=== PATIENT | female | born 1935 | race Caucasian/White ===

== ENCOUNTER → 2018-08-14 | Outpatient (CLI) | payer OTHER ==
[~2018-08-14] VITALS: Ht 160 cm; Wt 68.0 kg
[~2018-08-14] MED LIST: ACETAMINOPHEN-1 EAC1 PO; ADVAIR 100-501 EACH; ALLEGRA180 MG PO; AMLODIPINE BESY10 MG PO; ASPIRIN EC81 M1 PO; ATORVASTATIN CA40 MG PO; BRILINTA90 MG PO; CENTRUM SILVER1 EAC4 PO; DIOVAN HCT 1601 EACH PO; FIBER LAXATIV0.52 GM; FLUTICASONE-SA1 EAC3 INH; GLUMETZA1000 PO; HYDROCODONE-AP1 EA10 PO; IMDUR 30 MG TAB30 M1 PO; LISINOPRIL-HCT1 EACH PO; LISINOPRIL10 MG PO; LOPRESSOR25 PO; LOVAZA1000 MG PO; MOBIC7.5 MG PO; NITROGLYCERIN0.4 MG SUBLING; PERCOCET 5-3251 EACH PO; PRAVACHOL40 MG PO; PRESERVISION L1 EACH PO; SIMVASTATIN40 MG PO; SINGULAIR 10 MG10 M1 PO; TRAMADOL 50 MG50 MG PO; VENTOLIN HFA 1818 GM INH; XARELTO20 MG PO
[2018-08-14 11:18] VITALS: BP 115/53
--- NOTE | 2018-08-14 11:41 | NUR ---
Pain Clinic Assessment: 1. History of Osteoarthritis: Not Applicable History of Rheumatoid Arthritis: Not Applicable 2. Height: 5 ft. 3 in. 160.0 cm. Weight: 150.0 lb. oz. 68.040 kg. Patient's BMI: 26.6 3. Vital Signs: BP: 115/53 Pulse: 58 Resp: 14 Temp: 02 Sat: 96 ECG Mon: 4. Pain Intensity: 7 5. Fall Risk: Dizziness: N Needs help standing or walking: N Fallen in the last 3 months: N Fall risk comments: 6. Patient on Blood Thinner: None 7. History of Hypertension: Y 8. Opioid Therapy greater than 6 weeks: N Opiate Contract Signed: 9. Risk Assessment Tool Provided: 10. Functional Assessment Tool: 11. Recreational Drug Use: Never Drug Type: Tobacco Use: Never Smoker Tobacco Type: Amount or Packs/day: How Many Years: Alcohol Use: No Frequency: Quant:
--- NOTE | 2018-08-26 17:25 | HPC ---
[facility] [address] [place] [address] PAIN MANAGEMENT CONSULTATION Name: VIANEYELLA JACINTA Room #: REG [facility] Cecelia.#: [id number] Admission: 08/14/18 ������������������ Attend Phys: Celso Chakraborty MD Discharge: ������������������ Date of : 34 Report #: [id number] THIS REPORT FOR: //name// CC: Mavis Chakraborty DATE OF SERVICE: 08/14/2018 CHIEF COMPLAINT: Low back pain. HISTORY OF PRESENT ILLNESS: The patient is a carlos enrique 83-year-old who is here today essentially at the request of her stepson. Her stepson, Hung, has been a longstanding patient of our clinic and has responded nicely to treatments including epidural injections over the course of about 10 years. He referred her to us for treatment. The patient has been seeing Dr. Mavis Shields, but apparently she has changed practice location and she is seeing a new physician and she cannot give me his name at this time. She describes pain of 7-9/10, aching, shooting, continuous, intensely this worsened by standing and walking. She gets some relief with sitting. Consequently, she sits a lot. She is fairly socially isolated, although she says she gets out 2-3 times a week. She drives her own car and does her own laundry, a bit of cooking, but since pain with standing, she does less of these activities than she would like. MEDICATIONS: Metformin, aspirin, lisinopril, metoprolol, pravastatin, amlodipine, isosorbide, fluticasone, nitroglycerin, vitamin C. ALLERGIES: None. PAST MEDICAL HISTORY: Positive for type 2 diabetes, history of anemia, asthma and hypertension. She had chest pain and was seen at [facility] and received angioplasty 3 years ago. She is not receiving any anticoagulation therapy at this time and apparently has stents per her history. She suffered a colonic or gastrointestinal bleed. She was on Eliquis for a period of time and taken off. She reports that she has a device in called a black watch, but could give me a few details about this device and its role. SOCIAL HISTORY: She is retired, lives in [place]. She has been living independently without help in house work or other tasks. She denies use of tobacco and alcohol. Her opioid risk tool was completed and scored at zero. REVIEW OF SYSTEMS: Positive for night sweats and fatigue, decreased appetite. She has a history of heart trouble, described palpitations and some shortness of [address] [address] PAIN MANAGEMENT CONSULTATION Name: ELLA WINTERS Room #: REG [facility].#: [id number] Admission: 08/14/18 ������������������ Attend Phys: Celso Chakraborty MD Discharge: ������������������ Date of : 34 Report #: [id number] breath when lying flat. She complains of asthma, wheezing, and nocturia. She has had some episodes of insomnia over the course of the last year or two. PHYSICAL EXAMINATION: GENERAL: Very pleasant 83-year-old. She does not appear to have any cognitive dysfunction, although she seems sad during her discussion. She is 5 feet 3 inches, 150 pounds, BMI is 26.6. VITAL SIGNS: Her blood pressure 115/53, heart rate 58, respirations 14. HEENT: Within normal limits and her pupils are noted to be equal, round, reactive to light. EOMs are intact. Mucous membranes are moist. NECK: Clear. Good range of motion. CHEST: Clear to auscultation without wheezing. CARDIAC: Rhythm is regular and I could not appreciate a murmur. ABDOMEN: Negative without organomegaly. MUSCULOSKELETAL: Examination of the spine reveals some scoliotic change. Tenderness across the lumbosacral segment. Sacroiliac joints are nontender. Straight leg raising reproduces some pain in the low back and radiation into the hips, but nothing further. Sensation and strength in lower extremities are judged to be adequate. Deep tendon reflexes are absent in knees and ankles. IMPRESSION: Lumbar spondylosis with scoliosis. Pain is fairly diffuse across the lumbosacral segment. I would be willing to give her a single epidural injection with intent to provide some relief of her axial back pain with her scoliotic change. She may have discogenic pain as well. Preauthorization is required by insurance, so we will seek preauthorization before we proceed. Otherwise, options include treatment with medication, which have significant side effects in an elderly patient. We would like to try injection therapy first. I would consider spondylitic treatments with facet injections, but would prefer to perform the epidural first due to its simplicity in its ability to provide coverage over multiple levels. All of this explained to the patient. She was given an opportunity to ask and answer questions. Followup visit planned for injection as soon as able. ��������������������������������������������� <ELECTRONICALLY SIGNED> ���������������������������������������� By: Celso Chakraborty MD ��������������������������������������������� 08/26/18 1725 [id number] Celso Chakraborty MD /nt
== END ==
LOC: PAIN 06:56
DX: M47.816 Spondylosis without myelopathy or radiculopathy, lumbar region (principal); M41.86 Other forms of scoliosis, lumbar region; Z79.899 Other long term (current) drug therapy

== ENCOUNTER → 2018-09-25 | Outpatient (CLI) | payer OTHER ==
[~2018-09-25] VITALS: Ht 160 cm; Wt 68.2 kg
--- NOTE | ~2018-09-25 | HPC ---
[facility] [address] [place] [address] PAIN MANAGEMENT CONSULTATION Name: VIANEYELLAYOKASTA WORKMAN Room #: REG [facility] Cecelia.#: [id number] Admission: 09/25/18 ������������������ Attend Phys: Celso Chakraborty MD Discharge: ������������������ Date of : 34 Report #: [id number] THIS REPORT FOR: //name// CC: Mavis Chakraborty Followup visit for scoliosis, chronic low back pain with spondylosis and radiculopathy. The patient returns today for an epidural injection. We have received preauthorization from the insurance company after a delay and I needed addendum in my chart since I did not specifically mention her radiculopathy in my impression. She has multicausal back pain with radiation. Pain radiates from her back into her left side at the apex of her scoliosis as well as some radiation down into her hips. The radiating pains are certainly radicular in part and she has spondylitic pain as well. For reasons outlined in my note, we have received preauthorization to go forward with a trial of epidural steroid therapy and we will evaluate her response. There have been no significant changes since her visit here on 08/14/2018. She describes her pain once again in severe intensity levels on a daily basis, can reach 9, depending on activity. PHYSICAL EXAMINATION: VITAL SIGNS: Her blood pressure 131/58, heart rate is 57, respirations 16. GENERAL: She is pleasant, alert and oriented without any signs of cognitive issues. MUSCULOSKELETAL: Reveals once again scoliosis to the right with rotation. There is significant tenderness along the lumbosacral segment. Reduced range of motion. She has pain that radiates from the apex of her scoliosis, left in a radicular pattern with considered upper lumbar as well as some radiating pain into her hips. Most of her radicular pain is high lumbar, but there is also some lumbar pain radiating into the legs as well. Pinprick sensation is normal. Strength in lower extremities is also within normal limits. Deep tendon reflexes are absent bilaterally at knees and ankles. IMPRESSION: Lumbar spondylosis with scoliosis and radiculopathy with multiple dermatomal distribution including upper lumbar distribution and hips. PROCEDURE: Lumbar epidural steroid injection under fluoroscopic guidance. DESCRIPTION OF PROCEDURE: She was taken to fluoroscopic suite where she was placed prone, skin prepped with ChloraPrep. Skin was anesthetized over L2-L3. A 20-gauge Tuohy epidural needle advanced into the epidural space to left of midline. There was no blood or CSF aspirated. A 0.25 [place] [address] PAIN MANAGEMENT CONSULTATION Name: ELLA WINTERS Room #: REG [facility] Cecelia.#: [id number] Admission: 09/25/18 ������������������ Attend Phys: Celso Chakraborty MD Discharge: ������������������ Date of : 34 Report #: [id number] injected and excellent epidurogram was achieved. It was then followed by 3 mL of 0.5% lidocaine mixed with 60 mg of triamcinolone. I slightly reduced her triamcinolone related to her diabetes. She tolerated the procedure well and there were no complications. She was taken to recovery room for observation. Followup visit is planned in 6-8 weeks to evaluate the longer term response to this injection. It will help us to guide therapy. ��������������������������������������������� ���������������������������������������� By: ��������������������������������������������� [id number] Celso Chakraborty MD /nt
[2018-09-25 08:51] VITALS: BP 131/58
--- NOTE | 2018-09-25 08:59 | NUR ---
Pain Clinic Assessment: 1. History of Osteoarthritis: Not Applicable History of Rheumatoid Arthritis: Not Applicable 2. Height: 5 ft. 3 in. 160.0 cm. Weight: 150.4 lb. oz. 68.221 kg. Patient's BMI: 26.6 3. Vital Signs: BP: 131/58 Pulse: 57 Resp: 16 Temp: 02 Sat: 97 ECG Mon: 4. Pain Intensity: 9 5. Fall Risk: Dizziness: Y Needs help standing or walking: N Fallen in the last 3 months: N Fall risk comments: 6. Patient on Blood Thinner: None 7. History of Hypertension: Y 8. Opioid Therapy greater than 6 weeks: N Opiate Contract Signed: 9. Risk Assessment Tool Provided: LOW RISK 0/3 10. Functional Assessment Tool: 11. Recreational Drug Use: Never Drug Type: Tobacco Use: Never Smoker Tobacco Type: Amount or Packs/day: How Many Years: Alcohol Use: No Frequency: Quant:
== END | disposition home or self-care (01) ==
LOC: PAIN 06:40
DX: M47.26 Other spondylosis with radiculopathy, lumbar region (principal); G89.29 Other chronic pain; M41.86 Other forms of scoliosis, lumbar region; Z98.890 Other specified postprocedural states; Z79.899 Other long term (current) drug therapy; Z79.82 Long term (current) use of aspirin

== ENCOUNTER → 2019-01-29 | Outpatient (CLI) | payer OTHER ==
[~2019-01-29] VITALS: Ht 162.6 cm; Wt 67.9 kg
[~2019-01-29] MED LIST changes: +LISINOPRIL20 MG PO; +MUCINEX600 MG PO; +TYLENOL325 M1 PO
--- NOTE | ~2019-01-29 | HPC ---
[facility] [place] [address] PAIN MANAGEMENT CONSULTATION Name: VIANEYELLASPARKLE WORKMAN Room #: REG [facility] Cindy#: [id number] Admission: 01/29/19 Attend Phys: Celso Chakraborty MD Discharge: Date of : 34 Report #: [id number] THIS REPORT FOR: //name// CC: Mavis Chakraborty DATE OF SERVICE: 01/29/2019 Followup visit for chronic pain. Low back pain with spondylosis, sacroiliac joint pain on the right, osteoarthritis. The patient has an intrathecal infusion pump. She also receives oral opioid medications under terms of written opioid agreement and declining doses. The patient returns to pain clinic today for followup. Her intrathecal infusion pump is functioning well. She needs renewal of her oral medications. She has been very cautiously using her oxycodone down substantially since placement of intrathecal infusion pump. Her last prescription for oxycodone 7.5/325 was on 11/10/2018 for 60 tablets. That means that she has been using less than 1 tablet on average per day of oxycodone 7.5/325 for MME max of 10. She also uses very low dose alprazolam 0.25 mg, provided for her by her primary physician. She complains of pain in her right sacroiliac joint. This appears to be sacroiliitis. She has been having trouble recently with a rash on her face. This was diagnosed as a bacterial infection, which she was placed on antibiotics. She had a reaction to the SULFA and the antibiotic was switched. Shortly thereafter, she developed a vaginal yeast infection. She saw the urologist. She was started on fluconazole. This is still troubling her somewhat with a pain level of 3/10. She is followed by physicians in [place], [place], at [facility]. PQRS REVIEW: 1. Diffuse osteoarthritis of knees, hands, takes a lead. 2. BMI 38.7. 3. Vital Signs: Blood pressure 146/91, heart rate 95, respirations 18. 4. Pain intensity 3/10. 5. She complains of dizziness and needs help standing or walking, uses a cane, but has not fallen in the last 3 months. She would be considered; however, a fall risk because of her need for appliance. 6. She is on no blood thinners. 7. No history of hypertension. 8. She is on an opioid agreement, signed first on 09/15/2018. She is on [address] [address] PAIN MANAGEMENT CONSULTATION Name: ELLA WINTERS Room #: REG [facility] JinaTyrone#: [id number] Admission: 01/29/19 Attend Phys: Celso Chakraborty MD Discharge: Date of : 34 Report #: [id number] dose oxycodone as described above. She has completed an opioid risk tool and is at low risk with a score of 2. Her functional assessment score is 45/70. 9. Recreational drug use: None. Tobacco: Former 2-pack a day smoker for 20 years and has completely quit. She denies use of alcohol. PHYSICAL EXAMINATION: VITAL SIGNS: As above. GENERAL: She moves independently from sitting to standing position, but her gait is a bit unstable unless she uses a cane. CHEST: Clear. CARDIAC: Rhythm is regular. MUSCULOSKELETAL: Examination of the spine reveals tenderness across the lumbosacral segment, primarily on the right and very localized pain and tenderness over the sacroiliac joint on that side. An NYLA reproduces pain in the sacroiliac joint. Straight leg raising is negative for radiculopathy. IMPRESSION: 1. Chronic intractable low back pain, post-laminectomy syndrome. 2. New onset right sacroiliac joint pain, sacroiliitis. 3. Multi-joint arthritis and arthropathy, status post bilateral knee replacement. 4. Management of intrathecal infusion pump. 5. Management of high risk opioid medications, now at declining dose. PLAN: 1. I have renewed her oxycodone under terms of our agreement and sent that electronically to her pharmacy. 2. No injection performed today, but we will reschedule her back for sacroiliac injection if this does not improve over the next week or two. 3. Refill of her intrathecal infusion pump was postponed to her next visit, which is before 04/13/2019. We will see her at that time or sooner for sacroiliac injection if necessary. By: [id number] Celso Chakraborty MD /nt
--- NOTE | ~2019-01-29 | HPC ---
[facility] [address] [address] [address] PAIN MANAGEMENT CONSULTATION Name: VIANEYELLASPARKLE WORKMAN Room #: REG [facility] Cindy#: [id number] Admission: 01/29/19 Attend Phys: Celso Chakraborty MD Discharge: Date of : 34 Report #: [id number] THIS REPORT FOR: //name// CC: ALICIA Chakraborty DATE OF SERVICE: 01/29/2019 REASON FOR VISIT: Followup visit for chronic low back pain, scoliosis, spondylosis, and radiculopathy. CHIEF COMPLAINT: Low back pain with radiation into both legs. HISTORY OF PRESENT ILLNESS: The patient returns to clinic today for evaluation of her ongoing pain. She is 83 years old and has degenerative disease resulting in radicular symptoms. She has responded favorably in the past with epidural injection. Her last injection provided nearly 70% pain relief for 3 months without issues. She would like to see if she can repeat an injection today, but will need a preauthorization. She also is experiencing a deep cough. Although she does not feel sick, cough is rattly and productive. This began just within the last few days. She describes her pain as a deep 4-5/10. Pain is worse with standing or walking, alleviated by sitting and lying down. PAST MEDICAL HISTORY: Positive for hypertension, asthma for which she uses Advair. She has a history of GI bleed. The patient has type 2 diabetes. SOCIAL HISTORY: She denies use of tobacco or alcohol. No use of illicit medications. Functional assessment score is 37/70. Opioid risk tool score of 0. She is not currently on an opioid agreement through our clinic. No medications provided. PHYSICAL EXAMINATION: GENERAL: She is a pleasant 83-year-old. VITAL SIGNS: Blood pressure 125/60, heart rate 57, respirations 16. She is 5 feet 4 with a BMI of 25.7. She independently moves from sitting to standing position. Gait is mildly antalgic and slow. CHEST: Reveals some coarse breath sounds. She has a deep rattle. CARDIAC: Regular rate and rhythm. MUSCULOSKELETAL: Spine tenderness across the lumbosacral segment, pain with [facility] [address] [place] [address] PAIN MANAGEMENT CONSULTATION Name: VIANEYELLA Room #: REG [facility] Cindy#: [id number] Admission: 01/29/19 Attend Phys: Celso Chakraborty MD Discharge: Date of : 34 Report #: [id number] forward flexion. Straight leg raising reproduces pain on the left at the lumbar spine with radiation through the hip and into the leg. Straight leg raising also positive on the right. Sensation intact. No focal weakness. Deep tendon reflexes are absent bilaterally. IMPRESSION: Low back pain with radiculopathy with favorable response to prior epidural injection. PLAN: We will preauthorize her for another injection, gave her a week to get over a cold or her cough. Potential benefits and risks of procedure have been reviewed with the patient once again and questions answered. Followup visit planned in 1 week. By: 1400 [id number] Celso Chakraborty MD /nt
[2019-01-29 10:10] VITALS: BP 125/68
--- NOTE | 2019-01-29 10:52 | NUR ---
Pain Clinic Assessment: 1. History of Osteoarthritis: hands back shoulders History of Rheumatoid Arthritis: Not Applicable 2. Height: 5 ft. 4 in. 162.6 cm. Weight: 149.8 lb. oz. 67.949 kg. Patient's BMI: 25.7 3. Vital Signs: BP: 125/68 Pulse: 57 Resp: 16 Temp: 02 Sat: 96 ECG Mon: 4. Pain Intensity: 4-5 5. Fall Risk: Dizziness: N Needs help standing or walking: N Fallen in the last 3 months: N Fall risk comments: 6. Patient on Blood Thinner: None 7. History of Hypertension: Y 8. Opioid Therapy greater than 6 weeks: N Opiate Contract Signed: 9. Risk Assessment Tool Provided: LOW RISK 0/3 10. Functional Assessment Tool: 11. Recreational Drug Use: Never Drug Type: Tobacco Use: Never Smoker Tobacco Type: Amount or Packs/day: How Many Years: Alcohol Use: No Frequency: Quant:
== END ==
LOC: PAIN 06:50
DX: M47.26 Other spondylosis with radiculopathy, lumbar region (principal); Z79.899 Other long term (current) drug therapy; Z88.8 Allergy status to other drugs, medicaments and biological substances

== ENCOUNTER → 2019-02-05 | Outpatient (CLI) | payer OTHER ==
[~2019-02-05] VITALS: Ht 162.6 cm; Wt 67.6 kg
--- NOTE | ~2019-02-05 | P ---
[facility] [place] [address] PROCEDURE REPORT Name: ELLA WINTERS Room #: REG [facility] Cindy#: [id number] Admission: 02/05/19 Attend Phys: Celso Chakraborty MD Discharge: Date of : 34 Report #: [id number] THIS REPORT FOR: //name// CC: Dr. Mavis Chakraborty DATE OF SERVICE: 02/05/2019 PROCEDURE NOTE: Lumbar epidural steroid injection L2-L3 under fluoroscopic guidance. DIAGNOSES: Lumbar spondylosis with radiculopathy. INDICATIONS FOR PROCEDURE: The patient has returned to the pain clinic after her visit on 01/29/2019 for the injection, which we have now preauthorized. She has had excellent response to these injections before. She is not a good surgical candidate based on age. Procedure was explained including risks and benefits and she is anxious to proceed. PROCEDURE: Lumbar epidural steroid injection under fluoroscopic guidance, L2-L3. DESCRIPTION OF PROCEDURE: After informed consent, she was taken to fluoroscopic suite, placed prone, skin prepped with ChloraPrep. Skin anesthetized over the L2-L3 interspace. A 20-gauge Tuohy epidural needle advanced first attempt into the epidural space with loss of resistance. There was no blood nor CSF aspirated. A 1 mL of Omnipaque injected and good spread of dye observed into the epidural space followed by 3 mL of 0.5% lidocaine mixed with 80 mg of triamcinolone. She tolerated the procedure well and was observed for 45 minutes and discharged. Follow up as needed. By: [id number] Celso Chakraborty MD /nt
[2019-02-05 08:44] VITALS: BP 142/61
--- NOTE | 2019-02-05 08:55 | NUR ---
Pain Clinic Assessment: 1. History of Osteoarthritis: hands back shoulders History of Rheumatoid Arthritis: Not Applicable 2. Height: 5 ft. 4 in. 162.6 cm. Weight: 149.0 lb. oz. 67.586 kg. Patient's BMI: 25.6 3. Vital Signs: BP: 142/61 Pulse: 59 Resp: 14 Temp: 02 Sat: 97 ECG Mon: 4. Pain Intensity: 8 5. Fall Risk: Dizziness: N Needs help standing or walking: N Fallen in the last 3 months: N Fall risk comments: 6. Patient on Blood Thinner: None 7. History of Hypertension: Y 8. Opioid Therapy greater than 6 weeks: N Opiate Contract Signed: 9. Risk Assessment Tool Provided: LOW RISK 0/3 10. Functional Assessment Tool: 37 11. Recreational Drug Use: Never Drug Type: Tobacco Use: Never Smoker Tobacco Type: Amount or Packs/day: How Many Years: Alcohol Use: No Frequency: Quant:
== END | disposition home or self-care (01) ==
LOC: PAIN 06:46
DX: M47.26 Other spondylosis with radiculopathy, lumbar region (principal); M54.5 Low back pain; G89.29 Other chronic pain; I10 Essential (primary) hypertension; M19.90 Unspecified osteoarthritis, unspecified site; Z98.890 Other specified postprocedural states; Z79.899 Other long term (current) drug therapy; Z79.82 Long term (current) use of aspirin

== ENCOUNTER → 2019-10-05 | Outpatient (CLI) | payer OTHER ==
[~2019-10-05] VITALS: Ht 162.6 cm; Wt 69.5 kg
--- NOTE | ~2019-10-05 | HPC ---
[facility] [place] [address] PAIN MANAGEMENT CONSULTATION Name: ELLA WINTERS Room #: REG [facility] NayTyroneGrecia.#: [id number] Admission: 10/05/19 Attend Phys: Celso Chakraborty MD Discharge: Date of : 33 Report #: [id number] THIS REPORT FOR: cc: Mavis Shields MD,Mavis Chakraborty,Celso Pretty MD ~ CC: Mavis Chakraborty DATE OF SERVICE: 10/05/2019 Followup visit for severe scoliosis with lumbar spondylosis. The patient returns to pain clinic today in followup. She was last seen in 01/2019. She has received epidural injections on a couple of occasions for lumbosacral pain. She has had some response, but not lasting and her last injection was not as helpful as before. She is here today to look for other options. She continues to live independently. She is retired, living in [place]. She denies use of tobacco and alcohol. The patient complains of pain across her low back, exclusively on the left. She has pain when she does her own laundry, cooking and much more pain with standing than any other activity. She describes her pain today as a 7/10. PQRS: Positive for arthritis, particularly of the spine with spondylosis. She also complains of arthritis of the hands and shoulders. Her BMI is 26.3, blood pressure 122/62, heart rate 63, respirations 18, O2 sat 96. She has had one fall in the last 3 months, but needs no help walking or standing. Her gait is antalgic. She is not on blood thinners, but does have a history of hypertension. Dr. Shields treats her and provides all medications. She is not on opioids and finds them to be bothersome. She does not want to take medications beyond those that she is currently using. Her risk assessment score is 0. Functional assessment score is 34/70 suggesting pretty good management of chronic intractable pain. PHYSICAL EXAMINATION: GENERAL: She is pleasant female. VITAL SIGNS: As noted. CHEST: She has a slight productive cough that she has had dating back to her last visit here, which went well, when I noted on my physical assessment. Her chest, however, is clear with no wheezing. CARDIAC: Rhythm is regular. 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 Her apex is to the left. Tenderness is located all along the left side of her spine lateral to the spinous process corresponding to the facet joints. I would suspect these extends from about L1-L2 through about L4-L5, but not lower. 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 Given her lack of response to epidural injections, her lack of favorable response, and presents side effects from oral medication, I have suggested that we consider facet injections. These can perform simply and we provide diagnostic information often times as well as therapeutic benefit lasting months. If she has had response of short duration, but of great improvement, we could consider radiofrequency ablation. Procedure has been scheduled for her and we will wait until we have preauthorization before we go forward. Only a small amount of triamcinolone be utilized helping us avoid blood sugar increases due to her type 2 diabetes. Procedure was explained in some detail. She is anxious to proceed. I will see her back and since we have preauthorization to go forward. By: [id number] Celso Chakraborty MD /nt
[2019-10-05 12:44] VITALS: BP 122/62
--- NOTE | 2019-10-05 12:45 | NUR ---
Pain Clinic Assessment: 1. History of Osteoarthritis: hands back shoulders History of Rheumatoid Arthritis: Not Applicable 2. Height: 5 ft. 4 in. 162.6 cm. Weight: 153.2 lb. oz. 69.491 kg. Patient's BMI: 26.3 3. Vital Signs: BP: 122/62 Pulse: 63 Resp: 18 Temp: 02 Sat: 96 ECG Mon: 4. Pain Intensity: 7 5. Fall Risk: Dizziness: N Needs help standing or walking: N Fallen in the last 3 months: Y Fall risk comments: 6. Patient on Blood Thinner: None 7. History of Hypertension: Y 8. Opioid Therapy greater than 6 weeks: N Opiate Contract Signed: 9. Risk Assessment Tool Provided: LOW RISK 0/3 10. Functional Assessment Tool: 37/ 11. Recreational Drug Use: Never Drug Type: Tobacco Use: Never Smoker Tobacco Type: Amount or Packs/day: How Many Years: Alcohol Use: No Frequency: Quant:
== END ==
LOC: PAIN 06:53
PROVIDERS: ATTEND Anesthesiology Pain Medicine
DX: M47.816 Spondylosis without myelopathy or radiculopathy, lumbar region (principal); M41.86 Other forms of scoliosis, lumbar region; Z79.899 Other long term (current) drug therapy

== ENCOUNTER → 2019-10-12 | Outpatient (CLI) | payer OTHER ==
[~2019-10-12] VITALS: Ht 162.6 cm; Wt 69.2 kg
--- NOTE | ~2019-10-12 | HPC ---
[facility] [place] [address] PAIN MANAGEMENT CONSULTATION Name: ELLA WINTERS Room #: REG [facility] Cindy#: [id number] Admission: 10/12/19 Attend Phys: Celso Chakraborty MD Discharge: Date of : 33 Report #: [id number] THIS REPORT FOR: cc: Mavis Shields MD,Mavis Chakraborty,Celso Pretty MD ~ CC: Mavis Chakraborty DATE OF SERVICE: 10/12/2019 Follow up visit for facet injections. The patient was seen on 10/05/2019. There have been no significant changes in her presentation. Pain comes and goes. She is actually having a pretty good day today. We reviewed the procedure discussed at her last visit and will see if we can provide her with some lasting relief. Informed consent was obtained, and she was taken to the fluoroscopic suite for treatment. IMPRESSION: Scoliosis with severe lumbar spondylosis with left-sided back pain. PROCEDURE: Four-level facet injection with triamcinolone and bupivacaine, L1-L2, L2-L3, L3-L4, L4-L5. After informed consent, she was taken to fluoroscopic suite, placed prone, skin prepped with ChloraPrep. Skin anesthetized over the left side with 1% lidocaine. The 25-gauge spinal needles were then gently advanced into the posterior inferior recess of the joint capsule and after negative aspiration, I injected 1 mL of 0.5% bupivacaine and 10 mg of triamcinolone at each level. She tolerated the procedure well and there were no complications. She was taken to recovery room for observation. Followup visit is planned as needed and my hope is that this will provide lasting relief for her low back pain. It can be repeated at this low level of triamcinolone if she gets months of pain relief. We will try to avoid using medication in this 84-year-old to help control pain. By: [id number] Celso Chakraborty MD /nt
[2019-10-12 09:40] VITALS: BP 159/61
--- NOTE | 2019-10-12 09:50 | NUR ---
Pain Clinic Assessment: 1. History of Osteoarthritis: hands back shoulders History of Rheumatoid Arthritis: Not Applicable 2. Height: 5 ft. 4 in. 162.6 cm. Weight: 152.6 lb. oz. 69.219 kg. Patient's BMI: 26.2 3. Vital Signs: BP: 159/61 Pulse: 62 Resp: 16 Temp: 02 Sat: 96 ECG Mon: 4. Pain Intensity: 0 today 5. Fall Risk: Dizziness: N Needs help standing or walking: N Fallen in the last 3 months: N Fall risk comments: 6. Patient on Blood Thinner: None 7. History of Hypertension: Y 8. Opioid Therapy greater than 6 weeks: N Opiate Contract Signed: 9. Risk Assessment Tool Provided: LOW RISK 0/3 10. Functional Assessment Tool: 37 11. Recreational Drug Use: Never Drug Type: Tobacco Use: Never Smoker Tobacco Type: Amount or Packs/day: How Many Years: Alcohol Use: No Frequency: Quant:
== END | disposition home or self-care (01) ==
LOC: PAIN 06:58
PROVIDERS: ATTEND Anesthesiology Pain Medicine
DX: M47.816 Spondylosis without myelopathy or radiculopathy, lumbar region (principal); M41.86 Other forms of scoliosis, lumbar region; M54.9 Dorsalgia, unspecified; G89.29 Other chronic pain; Z98.890 Other specified postprocedural states; Z79.899 Other long term (current) drug therapy; Z79.82 Long term (current) use of aspirin

== ENCOUNTER → 2019-12-24 | Outpatient (CLI) | payer OTHER ==
[~2019-12-24] VITALS: Ht 162.6 cm; Wt 68.0 kg
[2019-12-24 09:14] VITALS: BP 126/63
--- NOTE | 2019-12-24 09:15 | NUR ---
Pain Clinic Assessment: 1. History of Osteoarthritis: RIGHT HAND SPINE History of Rheumatoid Arthritis: Not Applicable 2. Height: 5 ft. 4 in. 162.6 cm. Weight: 150.0 lb. oz. 68.040 kg. Patient's BMI: 25.7 3. Vital Signs: BP: 126/63 Pulse: 63 Resp: 16 Temp: 02 Sat: 95 ECG Mon: 4. Pain Intensity: 6 5. Fall Risk: Dizziness: N Needs help standing or walking: N Fallen in the last 3 months: N Fall risk comments: 6. Patient on Blood Thinner: None 7. History of Hypertension: Y 8. Opioid Therapy greater than 6 weeks: N Opiate Contract Signed: 9. Risk Assessment Tool Provided: LOW RISK 0 10. Functional Assessment Tool: 11. Recreational Drug Use: Never Drug Type: Tobacco Use: Never Smoker Tobacco Type: Amount or Packs/day: How Many Years: Alcohol Use: No Frequency: Quant:
== END | disposition home or self-care (01) ==
LOC: PAIN 06:48
PROVIDERS: ATTEND Anesthesiology Pain Medicine
DX: M47.816 Spondylosis without myelopathy or radiculopathy, lumbar region (principal); M54.5 Low back pain; G89.29 Other chronic pain; Z98.890 Other specified postprocedural states; Z79.899 Other long term (current) drug therapy

== ENCOUNTER → 2020-01-11 | Outpatient (CLI) | payer OTHER ==
[~2020-01-11] VITALS: Ht 162.6 cm; Wt 67.3 kg
[2020-01-11 14:40] VITALS: BP 121/59
== END | disposition home or self-care (01) ==
LOC: PAIN 07:00
PROVIDERS: ATTEND Anesthesiology Pain Medicine
DX: M47.816 Spondylosis without myelopathy or radiculopathy, lumbar region (principal); M41.86 Other forms of scoliosis, lumbar region; G89.29 Other chronic pain; Z98.890 Other specified postprocedural states; Z79.899 Other long term (current) drug therapy